=== PATIENT | male | born 1960 | race Caucasian/White ===

== ENCOUNTER 2018-01-21 11:44 | Emergency (ER) | payer OTHER ==
[~2018-01-21] VITALS: Ht 182.9 cm; Wt 108.9 kg
[~2018-01-21 11:44] MED LIST: FLEXERIL PO; IBUPROFEN 600600 M1 PO; NOHOMEMEDICATIONS; NORCO 5-325 TA1 EACH PO; PENICILLIN VK250 MG PO; PREDNISONE50 MG PO; VALIUM5 MG PO
[2018-01-21] MEDS ORDERED: MOBIC15 MG PO (12:11)
[2018-01-21] MEDS ORDERED: ULTRAM 50MG TAB50 MG PO (12:11)
[2018-01-21 13:14] VITALS: BP 159/90
== END 2018-01-21 13:10 | disposition home or self-care (01) ==
LOC: ER 11:44
DX: G89.29 Other chronic pain (principal); M25.562 Pain in left knee; M54.9 Dorsalgia, unspecified; F17.210 Nicotine dependence, cigarettes, uncomplicated; Z86.19 Personal history of other infectious and parasitic diseases; Z90.49 Acquired absence of other specified parts of digestive tract

== ENCOUNTER 2019-04-03 23:21 | Emergency (ER) | payer OTHER ==
[~2019-04-03] VITALS: Ht 185.4 cm; Wt 111.1 kg
[~2019-04-03 23:21] MED LIST changes: +BACTRIM DS TAB1 EAC1 PO; +KEFLEX500 M1 PO; +MOBIC15 MG PO; +ULTRAM 50MG TAB50 MG PO
[2019-04-04 00:20] VITALS: BP 154/86
== END 2019-04-04 00:21 | disposition home or self-care (01) ==
LOC: ER 23:21
DX: L03.115 Cellulitis of right lower limb (principal); F17.210 Nicotine dependence, cigarettes, uncomplicated; Z90.49 Acquired absence of other specified parts of digestive tract; Z98.890 Other specified postprocedural states

== ENCOUNTER 2019-04-06 16:30 | Emergency (ER) | payer OTHER ==
[~2019-04-06] VITALS: Ht 185.4 cm; Wt 117.9 kg
[2019-04-06] MEDS ORDERED: PREDNISONE 20 M20 M1 PO (19:10)
[2019-04-06 19:26] VITALS: BP 151/92
== END 2019-04-06 19:27 | disposition home or self-care (01) ==
LOC: ER 16:30
DX: L95.9 Vasculitis limited to the skin, unspecified (principal); F17.210 Nicotine dependence, cigarettes, uncomplicated

== ENCOUNTER → 2019-04-10 | Outpatient (CLI) | payer OTHER ==
[~2019-04-10] MED LIST changes: +PREDNISONE 20 M20 M1 PO; +PREDNISONE 20 M20 MG PO
== END ==
LOC: HYPER 06:38
DX: I87.331 Chronic venous hypertension (idiopathic) with ulcer and inflammation of right lower extremity (principal); L97.812 Non-pressure chronic ulcer of other part of right lower leg with fat layer exposed; L03.115 Cellulitis of right lower limb; M19.90 Unspecified osteoarthritis, unspecified site; B36.9 Superficial mycosis, unspecified; G89.29 Other chronic pain; R21 Rash and other nonspecific skin eruption; R60.0 Localized edema; F17.200 Nicotine dependence, unspecified, uncomplicated

== ENCOUNTER 2019-04-13 11:39 | Emergency (ER) | payer OTHER ==
[~2019-04-13] VITALS: Ht 185.4 cm; Wt 117.9 kg
[~2019-04-13 11:39] MED LIST changes: -PREDNISONE 20 M20 MG PO
[2019-04-13 12:35] LABS: ABSOLUTE NEUTROPHILS 5.6 thou/uL (1.4-8.2); BASOPHILS 0.9 % (0.0-2.0); EOSINOPHILS 2.9 % (0.0-3.0); HEMATOCRIT 45.2 % (42.0-52.0); HEMOGLOBIN 15.3 gm/dL (14.0-18.0); LYMPHOCYTES 23.5 % (24.0-44.0); MCH 28.7 pg (26.0-34.0); MCHC 33.8 g/dL (28.0-37.0); MCV 85.1 fL (80.0-100.0); PLATELET COUNT 250 thou/uL (150-400); POLYS 64.7 % (36.0-66.0); RBC 5.32 mil/uL (4.50-6.00); RDW 13.1 % (10.5-14.5); WBC 8.6 thou/uL (4.0-11.0)
[2019-04-13 13:03] LABS: CALCIUM 9.4 mg/dL (8.5-10.1); CREATININE 1.3 mg/dL (0.7-1.3); POTASSIUM 4.2 mmol/L (3.5-5.1)
[2019-04-13] MEDS ORDERED: PREDNISONE 20 M20 MG PO (14:04)
[2019-04-13 14:33] VITALS: BP 126/78
== END 2019-04-13 14:33 | disposition home or self-care (01) ==
LOC: ER 11:39
PROVIDERS: Emergency Medicine
DX: I77.6 Arteritis, unspecified (principal); M54.9 Dorsalgia, unspecified; G89.29 Other chronic pain; F17.210 Nicotine dependence, cigarettes, uncomplicated

== ENCOUNTER → 2019-04-17 | Outpatient (CLI) | payer OTHER ==
[~2019-04-17] MED LIST changes: +PREDNISONE 20 M20 MG PO
== END ==
LOC: HYPER 06:35
DX: I87.331 Chronic venous hypertension (idiopathic) with ulcer and inflammation of right lower extremity (principal); L97.812 Non-pressure chronic ulcer of other part of right lower leg with fat layer exposed; L03.115 Cellulitis of right lower limb; L23.9 Allergic contact dermatitis, unspecified cause; L27.0 Generalized skin eruption due to drugs and medicaments taken internally; M25.569 Pain in unspecified knee; M19.90 Unspecified osteoarthritis, unspecified site; B36.9 Superficial mycosis, unspecified; G89.29 Other chronic pain; R21 Rash and other nonspecific skin eruption; R60.0 Localized edema; F17.200 Nicotine dependence, unspecified, uncomplicated

== ENCOUNTER 2020-03-10 08:37 | Emergency (ER) | payer OTHER ==
[~2020-03-10] VITALS: Ht 185.4 cm; Wt 117.9 kg
[2020-03-10] MEDS ORDERED: NOHOMEMEDICATIONS (08:43)
[2020-03-10 08:46] VITALS: BP 185/103
[2020-03-10] MEDS ORDERED: PREDNISONE 20 M20 MG PO (09:03)
== END 2020-03-10 09:12 | disposition home or self-care (01) ==
LOC: ER 08:37
DX: L25.9 Unspecified contact dermatitis, unspecified cause (principal); F17.210 Nicotine dependence, cigarettes, uncomplicated

== ENCOUNTER 2020-06-11 15:55 | Emergency (ER) | payer OTHER ==
[~2020-06-11] VITALS: Ht 185.4 cm; Wt 117.9 kg
[2020-06-11 15:55] VITALS: BP 150/94
[2020-06-11] MEDS ORDERED: PREDNISONE 20 M20 MG PO (16:25)
== END 2020-06-11 16:56 | disposition home or self-care (01) ==
LOC: ER 15:55
DX: L23.7 Allergic contact dermatitis due to plants, except food (principal); F17.210 Nicotine dependence, cigarettes, uncomplicated; Z79.899 Other long term (current) drug therapy

== ENCOUNTER 2020-11-22 14:04 | Emergency (ER) | payer OTHER ==
[~2020-11-22] VITALS: Ht 185.4 cm; Wt 117.9 kg
[2020-11-22] MEDS ORDERED: PREDNISONE 10 M10 MG PO (14:56)
[2020-11-22 15:58] VITALS: BP 159/98
== END 2020-11-22 16:07 | disposition home or self-care (01) ==
LOC: ER 14:04
DX: R21 Rash and other nonspecific skin eruption (principal); L29.9 Pruritus, unspecified; F17.210 Nicotine dependence, cigarettes, uncomplicated; Z79.899 Other long term (current) drug therapy

== ENCOUNTER 2021-04-26 14:12 | Emergency (ER) | payer OTHER ==
[~2021-04-26] VITALS: Ht 185.4 cm; Wt 104.3 kg
[~2021-04-26 14:12] MED LIST changes: +PREDNISONE 10 M10 MG PO
[2021-04-26 14:14] VITALS: BP 150/92
== END 2021-04-26 14:43 | disposition home or self-care (01) ==
LOC: ER 14:12
DX: S60.221A Contusion of right hand, initial encounter (principal); G89.29 Other chronic pain; F17.210 Nicotine dependence, cigarettes, uncomplicated; Z90.89 Acquired absence of other organs; W23.0XXA Caught, crushed, jammed, or pinched between moving objects, initial encounter; Y93.89 Activity, other specified; Y92.89 Other specified places as the place of occurrence of the external cause; Y99.8 Other external cause status